=== PATIENT | male | born 1950 | race Caucasian/White ===

== ENCOUNTER 2017-12-26 11:55 | Emergency (ER) | payer OTHER ==
[~2017-12-26] VITALS: Ht 190.5 cm; Wt 87.5 kg
--- NOTE | ~2017-12-26 | EKG ---
[address] [address] ELECTROCARDIOGRAM REPORT Name: JOYCE WHEELER Room #: DEP VERONICA Spear#: [id number] Admission: 12/26/17 Attend Phys: Discharge: 12/26/17 Date of : 46 Report #: [id number] THIS REPORT FOR: //name// [facility] ED Test Date: 2017-12-26 Test Time: 11:59:46 Pat Name: JOYCE WHEELER Department: Room: Gender: M Technology Sales Representative: JERRYWILLIAMS : 1950 Requested By: Jeancarlos Scales Order Number: [id number] MD: Mynor Steele Measurements Intervals [place] Rate: 110 P: 79 CT: 168 QRS: 37 QRSD: 78 T: 109 QT: 326 QTc: 442 Interpretive Statements Sinus tachycardia Multiple premature complexes, vent & supraven Low voltage, extremity leads Borderline repolarization abnormality Compared to ECG 09/02/2011 07:31:02 Low QRS voltage now present Atrial fibrillation no longer present Myocardial infarct finding no longer present Electronically Signed On 12-26-2017 17:41:55 CDT by Mynor Steele [email or web address] <ELECTRONICALLY SIGNED> By: Mynor Steele MD 12/26/17 1741 [id number] Mynor Steele MD /EPI
[~2017-12-26 11:55] MED LIST: ASPIRIN EC325 M1 PO; CARVEDILOL3.125 MG PO; FUROSEMIDE 40 M40 M1 PO; MAGNESIUM400 MG PO; NOHOMEMEDICATIONS; OMEPRAZOLE 20 M20 M1 PO; PACERONE 200 M200 M1 PO; POTASSIUM20 PO; PRADAXA150 MG PO
[2017-12-26 12:22] LABS: ABSOLUTE NEUTROPHILS 10.5 thou/uL (1.4-8.2); BASOPHILS 0.2 % (0.0-2.0); HEMATOCRIT 46.3 % (42.0-52.0); HEMOGLOBIN 15.6 gm/dL (14.0-18.0); LYMPHOCYTES 8.6 % (24.0-44.0); MCH 32.1 pg (26.0-34.0); MCHC 33.7 g/dL (28.0-37.0); MCV 95.2 fL (80.0-100.0); MONOCYTES 8.7 % (1.0-8.0); POLYS 82.5 % (36.0-66.0); RBC 4.87 mil/uL (4.50-6.00); RDW 14.9 % (10.5-14.5); WBC 12.8 thou/uL (4.0-11.0)
[2017-12-26 12:32] LABS: ANION GAP 13 mmol/L (7-16); APTT 29.2 Seconds (24.5-32.8); BUN 33 mg/dL (7-18); CALCIUM 9.9 mg/dL (8.5-10.1); CHLORIDE 105 mmol/L (98-107); CO2 20 mmol/L (21-32); CREATININE 1.4 mg/dL (0.7-1.3); GLUCOSE 167 mg/dL (74-106); INR 1.4; PROTIME 14.5 Seconds (9.3-11.4); SODIUM 138 mmol/L (136-145)
[2017-12-26 12:40] LABS: ALBUMIN 3.1 g/dL (3.4-5.0); MAGNESIUM 2.6 mg/dL (1.8-2.4); SGOT 34 U/L (15-37); SGPT 63 U/L (30-65); TOTAL BILIRUBIN 1.2 mg/dL (<0.1-1.0); TOTAL PROTEIN 7.3 g/dL (6.4-8.2); TROPONIN-I <0.06 ng/mL (<0.06)
[2017-12-26 12:54] LABS: LARGE PLATELETS FEW; PLATELET COUNT 159 thou/uL (150-400); PLATELET ESTIMATE NORMAL
[2017-12-26 12:59] LABS: BE(vivo) -5.2 mmol/L (-2 to +3); HCO3 16.5 mmol/L (22.0-26.0); PCO2 23.9 mmHg (35.0-45.0); PO2 60.1 mmHg (80.0-100.0); pH 7.457 (7.360-7.450); sO2 92.8 % (92.0-98.0)
[2017-12-26 13:41] VITALS: BP 97/68
== END 2017-12-26 13:45 ==
LOC: ER 11:55
PROVIDERS: Emergency Medicine
DX: I63.9 Cerebral infarction, unspecified (principal); I48.91 Unspecified atrial fibrillation; N18.9 Chronic kidney disease, unspecified; I47.1 Supraventricular tachycardia; I65.29 Occlusion and stenosis of unspecified carotid artery; R91.8 Other nonspecific abnormal finding of lung field; E87.2 Acidosis